=== PATIENT | female | born 1935 | race Caucasian/White ===

== ENCOUNTER 2020-05-04 23:12 | Inpatient (IN) | payer MEDICARE, OTHER ==
[~2020-05-04] VITALS: Ht 167.6 cm; Wt 66.7 kg
--- NOTE | 2020-05-04 23:14 | NUR ---
2300 PT VICENTE SIFUENTES WENT IN RM 7.
[2020-05-04 23:19] VITALS: BP 142/69
--- NOTE | 2020-05-04 23:30 | NUR ---
SEE COMPLETE ASSESSMENT NKDA HX:EXTENSIVE-- DM; HYPOTHYROIDISM; ALZHEIMER'S; SEE PAPER PAPERWORK STATUS--DNR (POLST ATTACHED TO PAPERWORK)
[2020-05-04] MEDS ORDERED: DEXAMETHASONE 4 MG/ML VIAL IVP ONE (23:35)
[2020-05-04] MEDS ORDERED: AZITHROMYCIN 500 MG in DEXTROSE 5% 250 ML IV ONE (23:35)
[2020-05-04] MEDS ORDERED: ALBUTEROL SULFATE/IPRATROPIU 3 ML SOL IH ONE (23:35)
[2020-05-05] MEDS ORDERED: cefTRIAXone 1,000 MG VIAL ONE (00:05)
[2020-05-05 00:11] LABS: BASOPHILS # (AUTO) 0.1 K/uL (0.00-0.22); BASOPHILS % (AUTO) 0.9 % (0.0-2.0); HEMOGLOBIN 12.8 g/dL (12.0-16.0); LYMPHOCYTES % (AUTO) 9.8 % (20.5-51.1); MEAN CORPUSCULAR HEMOGLOBIN 32 pg (27-31); MEAN CORPUSCULAR HGB CONC 33 g/dL (33-37); MEAN CORPUSCULAR VOLUME 97.7 fL (80-94); MONOCYTES # (AUTO) 0.5 K/uL (0.8-1.0); MONOCYTES % (AUTO) 4.3 % (1.7-9.3); PLATELET COUNT (AUTO) 252 K/uL (140-450); RED BLOOD CELL COUNT(AUTO) 3.99 MIL/uL (4.20-5.40); WHITE BLOOD COUNT (AUTO) 10.5 K/uL (4.8-10.8)
[2020-05-05 00:27] LABS: FIBRINOGEN 500 mg/dL (200-400)
[2020-05-05 00:42] LABS: C-REACTIVE PROTEIN QUANT 33.8 mg/dL (0.0-0.9)
[2020-05-05 00:44] LABS: ALBUMIN 2.4 g/dL (3.4-5.0); ANION GAP 14.2 (8-16); ASPARTATE AMINOTRANSFERASE 75 U/L (15-37); CHLORIDE 107 mmol/L (98-107); GLUCOSE 312 mg/dL (74-106); POTASSIUM 3.2 mmol/L (3.5-5.1); SODIUM SERUM 146 mmol/L (136-145); TOTAL BILIRUBIN 0.5 mg/dL (0.0-1.0)
[2020-05-05 00:48] LABS: D-DIMER 4190 ng/ml (0-400)
[2020-05-05] MEDS ORDERED: AZITHROMYCIN 500 MG INJ VIAL IV ONE (00:56)
[2020-05-05] MEDS ORDERED: NACL 0.9% 1,000 ML IV ONE ×2 (01:00)
[2020-05-05 01:27] LABS: UREA NITROGEN, BLOOD 95 mg/dL (7-18)
[2020-05-05] MEDS ORDERED: ASPIRIN 325 MG TAB PO ONE (01:30)
--- NOTE | 2020-05-05 01:31 | NUR ---
DR. HU AT BEDSIDE.
--- NOTE | 2020-05-05 01:33 | NUR ---
PATIENT RESTING IN BED WITH EYES CLOSED. VSS. WILL CONTINUE TO MONITOR.
--- NOTE | 2020-05-05 01:37 | NUR ---
PER DR. HU, PATIENT IS DNR; HOWEVER, SPOKE WITH PT.'S DAUGHTER AND WISHES FOR PATIENT TO BE TAKEN TO HOSPITAL FOR TREATMENT.
[2020-05-05] MEDS ORDERED: ENOXAPARIN 60 MG/0.6 ML SYR SUBQ ONE ×2 (02:30→03:50)
--- NOTE | 2020-05-05 03:24 | NUR ---
HHN NOT ADMINISTER DUE TO COVID PROTOCOL.
--- NOTE | 2020-05-05 03:40 | NUR ---
DR. HU AT BEDSIDE FOR RIGHT FEMORAL TLC.
--- NOTE | 2020-05-05 03:43 | NUR ---
CRITICAL LAB- CREATININE 2.0; BUN 95; GFR 25; DR. HU MADE AWARE; NO CT. ANGIO AT THIS TIME.
[2020-05-05] MEDS ORDERED: POTASSIUM CHL 20 MEQ/NACL 0.9% 1,000 ML IV SCH (03:45)
--- NOTE | 2020-05-05 03:46 | NUR ---
TROPONIN 0.163; DR. HU MADE AWARE.
[2020-05-05] MEDS ORDERED: ASPIRIN 325 MG TAB ONE (03:50)
[2020-05-05] MEDS ORDERED: ENOXAPARIN 60 MG/0.6 ML SYR SUBQ SCH (03:55)
--- NOTE | 2020-05-05 04:22 | NUR ---
PATIENT RESTING WITH EYES CLOSED. HOB <45; WILL CONTINUE TO MONITOR.
[2020-05-05] MEDS ORDERED: MEGE40SU4 PO (05:16)
[2020-05-05] MEDS ORDERED: SYN.05 PO (05:16)
[2020-05-05] MEDS ORDERED: DOCU-299 PO (05:16)
[2020-05-05] MEDS ORDERED: ATOR20TA PO (05:16)
[2020-05-05] MEDS ORDERED: ASPI-1884 PO (05:16)
[2020-05-05] MEDS ORDERED: MAGN400S60 PO (05:16)
[2020-05-05] MEDS ORDERED: ZINC220C28 PO (05:16)
[2020-05-05] MEDS ORDERED: BISA-213 RC (05:16)
[2020-05-05] MEDS ORDERED: AMLO10TA PO (05:16)
[2020-05-05] MEDS ORDERED: NITR0.4T2 SL (05:16)
[2020-05-05] MEDS ORDERED: ORE25 PO (05:16)
[2020-05-05] MEDS ORDERED: ACET-1182 PO (05:17)
[2020-05-05] MEDS ORDERED: INSU100V6 SQ (05:18)
[2020-05-05] MEDS ORDERED: INSU100S22 SUBQ (05:18)
[2020-05-05] MEDS ORDERED: GLUC1VIA (05:20)
--- NOTE | 2020-05-05 05:30 | NUR ---
PATIENT RESTING; NO DISTRESS-WILL CONTINUE TO MONITOR.
--- NOTE | 2020-05-05 06:36 | NUR ---
PATIENT SITTING QUIETLY IN BED. VSS.
--- NOTE | 2020-05-05 06:41 | NUR ---
Mireille blake in [facility] - 05/05/20 at 0642 by YOSI PATIENT IS COVID +
--- NOTE | 2020-05-05 07:08 | NUR ---
Pt report given to MARQUISE CHAVEZ. Transfer of care at this time.
--- NOTE | 2020-05-05 10:22 | NUR ---
Patient will be admitted to care of DR HORN. Admited to . Will go to room. Belongings list completed. Report to . ALL QUESTIONS ANSWERED, ENDORSED PT IN STABLE CONDITION, VSS, IN NAD. PTS FAMILY IN AGREEMENT WITH ADMISSION.
--- NOTE | 2020-05-05 10:30 | NUR ---
RECEIVED PATIENT FROM ER NURSE. PATIENT IS AOX1. RESPIRATIONS EVEN AND UNLABORED. ON 6 L NRB SATING AT 96%. NO DISTRESS NOTED. S1 AND S2 HEARD. SKIN IS DRY AND WARM. HAS PRESSURE WOUND ON SACRAL AREA. HAS RIGHT FEMORAL TRIPLE LUMEN AND RFA 22 G. INTACT AND PATENT. BOWEL SOUNDS ACTIVE IN ALL FOUR QUADRANTS. PT IS INCONTINENT. PLAN OF CARE WAS DISCUSSED. SAFETY PRECAUTIONS IN PLACE. CALL LIGHT WITHIN REACH. WILL CONTINUE TO MONITOR
[2020-05-05] MEDS ORDERED: HYDROcodone/APAP 7.5/325 MG 1 TAB PO PRN (11:45)
[2020-05-05] MEDS ORDERED: DOCUSATE SODIUM 100 MG GELCAP PO PRN (11:45)
[2020-05-05] MEDS ORDERED: ONDANSETRON 4 MG/2 ML VIAL IM/IVP PRN (11:45)
[2020-05-05] MEDS ORDERED: ACETAMINOPHEN 325 MG TAB PO PRN (11:45)
[2020-05-05] MEDS ORDERED: ZOLPIDEM 5 MG TAB PO PRN (11:45)
[2020-05-05] MEDS ORDERED: POTASSIUM CHLORIDE 40 MEQ, LIDOCAINE MPF 1% 25 MG in NACL 0.9% 250 ML IV PRN (11:45)
[2020-05-05] MEDS ORDERED: guaiFENesin DM 200/20 MG-10 ML 10 ML UDC PO PRN (11:45)
[2020-05-05] MEDS ORDERED: ALBUTEROL HFA MDI 90 MCG/ACTUATION 8 GM INH PRN (11:55)
[2020-05-05] MEDS ORDERED: DEXTROSE 50% 50 ML SYR IVP PRN (12:00)
[2020-05-05] MEDS: NACL 0.9% 1,000 ML IV SCH (12:07)
[2020-05-05] MEDS: amLODIPine 5 MG TAB PO SCH (12:09)
[2020-05-05] MEDS ORDERED: remdesivir CLINICAL MONITORING 1 EA MISC MC PRN (12:10)
[2020-05-05] MEDS ORDERED: REMDESIVIR (EUA) 200 MG in NACL 0.9% 100 ML IV ONE (12:10)
--- NOTE | 2020-05-05 12:15 | NUR ---
ALL SCHEDULED MEDS GIVEN. PT IS STABLE. NO DISTRESS NOTED. WILL CONTINUE TO MONITOR.
[2020-05-05] MEDS ORDERED: REMDESIVIR (EUA) 200 MG in NACL 0.9% 100 ML IV SCH (13:00)
--- NOTE | 2020-05-05 13:00 | NUR ---
WOUND CARE EVAL PLACED. PICTURES TAKEN AND PLACED IN PATIENTS FOLDER
--- NOTE | 2020-05-05 13:25 | NUR ---
SOCIAL WORK NOTE: Patient's Orientation Unable To Assess Information Provided By FELIX - ED Comments SW WAS UNABLE TO MEET PATIENT AT BEDSIDE. LUIS FELIPE COMPLETED ASSESSMENT WITH FELIX FROM [facility]. Chicken Cutter, Realtionship and Phone Number LAVON DAUGHTER [phone] COURTNEY LAL [phone] [facility] Power of Chlorinator No Does Patient Have a POLST No Identifying Problems No Social Work Triggers Is A Social Work Consult Needed No Mandate Report Filed No Explanation Of Identifying Problems PATIENT IS AN 84-YEAR-OLD FEMALE ADMITTED FOR ELEVATED TROPONIN. PATIENT HAS PMHX OF CVA, HYPERTENSION, AND DEMENTIA. [facility] - [phone] Pre-Admission Level Of Functioning Status Assist With ADL Prior Resources/Services Used In Last 12 Months SNF Rehab/Skilled Prior Resources/Service Comments PATIENT IS SKILLED AND IS NOT ON A BED HOLD. Prior DME No Prior DME Used Dialysis Comments N/A Patient Had Caregiver No Home Support No Caregiver Issues Financial Issues No Known Financial Issue Referral To The Financial Counselor Needed No Factors/Needs No D/C Needs Identified Discharge Plan Comments TENTATIVE DISCHARGE PLAN IS FOR PATIENT TO RETURN TO [facility]. DC Plan Status Initiated
[2020-05-05 13:26] LABS: CHOL/HDL RATIO 5.6 (1-4.5); FREE T4 (FREE THYROXINE) 1.01 ng/dL (0.76-1.46); MAGNESIUM 2.6 mg/dL (1.8-2.4); PHOSPHORUS 2.9 mg/dL (2.5-4.9); THYROID STIMULATING HORMONE 1.18 uIU/mL (0.34-3.74)
--- NOTE | 2020-05-05 15:33 | NUR ---
DC PLANNIN YRS OLD FEMAL PATIENT WAS ADMITTED FROM [facility] WITH A DX OF ELVATED TROPONIN, ACUTE RESP FAILURE, COVID TEST POSITIVE ON 15LNRB SATING 98 %. STARTED COVID TREATMENT ROCPEHIN AND AZITHROMYCIN IV ABX ,CONTINUED HOME MEDS. CONSULTED WITH CARDIO AND PULMO. DC PLAN TOGO BACK TO [facility] WHEN STABLE CM TO FOLLOW. Addendum: 05/08/20 at 1125 by Donna Suazo CM DC HEALTH NURSE: DISCUSSED WITH CM THAT PATIENT MAY BE DC BACK TO [facility] TODAY. FAXED PATIENTS CLINICALS TO [facility]. Addendum: 05/08/20 at 1255 by Donna Suazo CM DC HEALTH NURSE: SPOKE TO FELIX AT [facility], WAITING ON BED NUMBER. Addendum: 05/08/20 at 1306 by Donna Suazo CM DC HEALTH NURSE: SPOKE TO PATIENTS LAVON HAMILTON [phone] TO DISCUSS DISCHARGE BACK TO [facility] AND DISCUSSED RIGHTS OF MEDICARE. Addendum: 05/08/20 at 1404 by Donna Suazo CM [facility]: [facility] [place] PATIENT CAN GO TO ROOM 43-C. [facility] WILL ACCEPT TRANSPORTATION BILL. SET UP TRANSPORTATION WITH [facility] [phone] OR [phone] Addendum: 05/08/20 at 1430 by Donna Suazo CM [facility]: TRANSPORTATION IS SET UP FOR 7:00 PM WITH [facility] MARQUISE QUINTANILLA. Addendum: 05/08/20 at 1431 by Donna Suazo CM [facility]: [facility] [address] [id number] [address]
[2020-05-05] MEDS: BLOOD GLUCOSE MONITORING 1 DEV DEV FS SCH ×2 (17:00→21:00)
[2020-05-05] MEDS: ATORVASTATIN 20 MG TAB PO SCH (17:36)
--- NOTE | 2020-05-05 17:36 | NUR ---
ALL SCHEDULED MEDS GIVEN. PT IS STABLE NO DISTRESS NOTED. WILL CONTINUE TO MONITOR.
[2020-05-05] MEDS: INSULIN LISPRO SLIDING SCALE 100 UNITS/ML VIAL SUBQ PRN ×2 (17:53→22:06)
--- NOTE | 2020-05-05 19:45 | NUR ---
ENDORSED TO CASTING MACHINE CONTROL BOARD OPERATOR NURSE FOR CONTINUITY OF CARE. PT IS STABLE
--- NOTE | 2020-05-05 19:50 | NUR ---
RECEIVED ENDORSEMENT FROM AM SHIFT RN. PT IS AOX1, ON NRB, O2 SAT WNL, NO SOB, NO DISTRESS, SAFETY MEASURES IN PLACE PLAN OF CARE DISCUSSED, CALL LIGHT WITHIN REACH.
[2020-05-05 20:00] VITALS: BP 128/73
[2020-05-05] MEDS: INSULIN LANTUS 100 UNITS/ML 10 ML VIAL SUBQ SCH (21:00)
--- NOTE | 2020-05-05 22:06 | NUR ---
BLOOD SUGAR 164. 2 UNITS HUMALOG SQ GIVEN PER SLIDING SCALE, LANTUS 30 U NOT GIVEN, PT HAS POOR APPETITE, CALL LIGHT WITHIN REACH.
[2020-05-06] VITALS: BP 147/91
[2020-05-06] MEDS ORDERED: ENOXAPARIN 80 MG/0.8 ML SYR SUBQ SCH (03:00)
--- NOTE | 2020-05-06 03:32 | NUR ---
PERINEAL CARE RENDERED, DUE MEDS GIVEN, TOLERATED WELL, KEPT CLEAN, DRY AND COMFORTABLE, CALL LIGHT WITHIN REACH.
[2020-05-06 04:00] VITALS: BP 157/60
[2020-05-06] MEDS: NACL 0.9% 1,000 ML IV SCH (04:25)
[2020-05-06] MEDS: BLOOD GLUCOSE MONITORING 1 DEV DEV FS SCH ×4 (06:11→21:51)
--- NOTE | 2020-05-06 07:53 | NUR ---
PT IS STABLE, NO SOB, NO DISTRESS, BEDSIDE ENDORSEMENT GIVEN TO AM SHIFT RN FOR CONTINUITY OF CARE.
--- NOTE | 2020-05-06 07:58 | NUR ---
RECEIVED REPORT FROM NIGHTSHIFT NURSE. PT RESTING IN BED. ABLE TO MAKE SOME NEEDS KNOWN. RESPIRATIONS EVEN AND UNLABORED WITH NO SOB OR RESPIRATORY DISTRESS. SKIN WARM AND DRY TO TOUCH. IV SITE IN RFA 22G IS CLEAN, DRY, AND INTACT. SAFETY MEASURES IN PLACE. WILL CONTINUE TO MONITOR
[2020-05-06 08:00] VITALS: BP 155/76
[2020-05-06 08:07] LABS: T3 UPTAKE 33 % (24-39)
[2020-05-06 08:29] LABS: BASOPHILS % (AUTO) 0.2 % (0.0-2.0); HEMATOCRIT 37.9 % (36-48); HEMOGLOBIN 12.2 g/dL (12.0-16.0); LYMPHOCYTES # (AUTO) 1.1 K/uL (2.5-16.5); MEAN CORPUSCULAR HEMOGLOBIN 32 pg (27-31); MEAN CORPUSCULAR HGB CONC 32 g/dL (33-37); MEAN CORPUSCULAR VOLUME 98.3 fL (80-94); MONOCYTES # (AUTO) 0.5 K/uL (0.8-1.0); MONOCYTES % (AUTO) 3.7 % (1.7-9.3); NEUTROPHILS # (AUTO) 10.6 K/uL (1.8-7.7); NEUTROPHILS % (AUTO) 87.1 % (42.2-75.2); PLATELET COUNT (AUTO) 255 K/uL (140-450); RED BLOOD CELL COUNT(AUTO) 3.86 MIL/uL (4.20-5.40); RED CELL DISTRIBUTION WIDTH 15.2 % (11.6-13.7); WHITE BLOOD COUNT (AUTO) 12.2 K/uL (4.8-10.8)
[2020-05-06] MEDS: ASCORBIC ACID 500 MG TAB PO SCH (08:42)
[2020-05-06] MEDS: ZINC SULF 220 MG CAP PO SCH (08:42)
[2020-05-06] MEDS: ASPIRIN 81 MG TAB.CHEW PO SCH (08:43)
[2020-05-06] MEDS: PANTOPRAZOLE 40 MG TABEC PO SCH (08:43)
[2020-05-06] MEDS: AZITHROMYCIN 250 MG TAB PO SCH (08:43)
[2020-05-06] MEDS: LEVOTHYROXINE 0.05 MG TAB PO SCH (08:43)
[2020-05-06] MEDS: hydroCHLOROthiazide 25 MG TAB PO SCH (08:44)
[2020-05-06] MEDS: amLODIPine 5 MG TAB PO SCH (08:44)
[2020-05-06 08:52] LABS: ANION GAP 15.8 (8-16); CARBON DIOXIDE 25.6 mmol/L (21-32); CHLORIDE 119 mmol/L (98-107); CREATININE 1.4 mg/dL (0.6-1.3); GLUCOSE 122 mg/dL (74-106); POTASSIUM 3.4 mmol/L (3.5-5.1); UREA NITROGEN, BLOOD 59 mg/dL (7-18)
[2020-05-06] MEDS: COMMUNICATION ORDER MC SCH (09:00)
--- NOTE | 2020-05-06 09:07 | NUR ---
ADMINISTERED SCHED MED PRESCRIBED PER MD ORDER. MEDICATION EDUCATION PERFORMED. PT CONFUSED AND UNABLE TO VERBALIZE UNDERSTANDING. SAFETY MEASURES IN PLACE. WILL CONTINUE TO MONITOR
[2020-05-06 09:08] LABS: LACTATE DEHYDROGENASE 453 IU/L (119-226)
[2020-05-06 09:28] LABS: BILIRUBIN,DIRECT 0.1 mg/dL (0.0-0.3); TOTAL BILIRUBIN 0.3 mg/dL (0.0-1.0)
[2020-05-06 10:20] LABS: SODIUM SERUM 157 mmol/L (136-145)
--- NOTE | 2020-05-06 11:30 | NUR ---
PT BLOOD SUGAR IS 149. NO INSULIN NEEDED AT THIS TIME. SAFETY MEASURES IN PLACE. WILL CONTINUE TO MONITOR
[2020-05-06 12:00] VITALS: BP 139/75
--- NOTE | 2020-05-06 13:15 | NUR ---
PT RESTING IN BED. FLACC 0. RESPIRATIONS EVEN AND UNLABORED WITH NO SOB OR RESPIRATORY DISTRESS. SKIN WARM AND DRY TO TOUCH. SAFETY MEASURES IN PLACE. WILL CONTINUE TO MONITOR
[2020-05-06] MEDS ORDERED: remdesivir CLINICAL MONITORING 1 EA MISC MC PRN (13:25)
--- NOTE | 2020-05-06 14:04 | NUR ---
PATIENT HAS BEEN SCREENED AND CATEGORIZED MODERATE NUTRITION RISK. PATIENT WILL BE SEEN WITHIN 3-5 DAYS OF ADMISSION. 05/08/20-05/10/20 JOELLE MAO MS, RDN
--- NOTE | 2020-05-06 15:30 | NUR ---
PT RESTING IN BED. FLACC 0. RESPIRATIONS EVEN AND UNLABORED WITH NO SOB OR RESPIRATORY DISTRESS. SKIN WARM AND DRY TO TOUCH. SAFETY MEASURES IN PLACE. WILL CONTINUE TO MONITO
[2020-05-06 16:00] VITALS: BP 145/64
--- NOTE | 2020-05-06 16:30 | NUR ---
PT BLOOD SUGAR IS 187. PRN INSULIN TO BE ADMINISTERED PRESCRIBED PER MD ORDER WITH NEXT MEAL. SAFETY MEASURES IN PLACE WILL CONTINUE TO MONITOR
[2020-05-06] MEDS: NACL 0.45% 1,000 ML IV SCH (16:35)
[2020-05-06] MEDS ORDERED: REMDESIVIR (EUA) 200 MG in NACL 0.9% 100 ML IV SCH (17:00)
[2020-05-06] MEDS: ATORVASTATIN 20 MG TAB PO SCH (17:03)
[2020-05-06] MEDS: REMDESIVIR (EUA) 100 MG in NACL 0.9% 100 ML IV SCH (17:14)
--- NOTE | 2020-05-06 17:14 | NUR ---
ADMINISTERED SCHED MED PRESCRIBED PER MD ORDER. MEDICATION EDUCATION PERFORMED. PT CONFUSED AND UNABLE TO VERBALIZE UNDERSTANDING. SAFETY MEASURES IN PLACE. WILL CONTINUE TO MONITOR
[2020-05-06] MEDS: INSULIN LISPRO SLIDING SCALE 100 UNITS/ML VIAL SUBQ PRN ×2 (17:58→22:01)
--- NOTE | 2020-05-06 18:02 | NUR ---
ADMINISTERED SCHED MED PRESCRIBED PER MD ORDER. MEDICATION EDUCATION PERFORMED. PT CONFUSED AND UNABLE TO VERBALIZE UNDERSTANDING. SAFETY MEASURES IN PLACE. WILL CONTINUE TO MONITOR
--- NOTE | 2020-05-06 19:30 | NUR ---
ENDORSED TO NIGHTSHIFT FOR CONTINUITY OF CARE. PT IS STABLE
--- NOTE | 2020-05-06 19:31 | NUR ---
RECEIVED ENDORSEMENT FROM AM SHIFT RN. PT IS AOX1, ON NRB, O2 SAT WNL, NO SOB, NO DISTRESS, SAFETY MEASURES IN PLACE PLAN OF CARE DISCUSSED, CALL LIGHT WITHIN REACH. ISO PRECAUTION OBSERVED AT ALL TIMES.
[2020-05-06 20:00] VITALS: BP_SYST 131; BP_SYST 145; BP_DIAS 52; BP_DIAS 64
--- NOTE | 2020-05-06 20:00 | NUR ---
PT IS IN STABLE CONDITION, NO SOB, NO DISTRESS, ON NRB, O2 SAT 96%, ENDORSED TO MARQUISE CRUZ FOR CONTINUITY OF CARE.
[2020-05-06] MEDS: ENOXAPARIN 80 MG/0.8 ML SYR SUBQ SCH (21:00)
[2020-05-06] MEDS: INSULIN LANTUS 100 UNITS/ML 10 ML VIAL SUBQ SCH (22:00)
[2020-05-07] VITALS: BP 150/69
[2020-05-07] MEDS: NACL 0.45% 1,000 ML IV SCH ×3 (02:35→22:53)
[2020-05-07 04:00] VITALS: BP 154/59
--- NOTE | 2020-05-07 07:15 | NUR ---
RECEIVED REPORT FROM NIGHTSHIFT NURSE. PT RESTING IN BED. ABLE TO FOLLOW SOME COMMANDS. RESPIRATIONS EVEN AND UNLABORED WITH NO SOB OR RESPIRATORY DISTRESS. IV SITE IN R HAND 22G AND R FEMORAL TRIPLE LUMEN IS CLEAN, DRY AND INTACT. SKIN WARM AND DRY TO TOUCH. SAFETY MEASURES IN PLACE. WILL CONTINUE TO MONITOR
[2020-05-07] MEDS: BLOOD GLUCOSE MONITORING 1 DEV DEV FS SCH ×4 (07:53→21:54)
[2020-05-07 08:00] VITALS: BP 156/84
[2020-05-07 08:18] LABS: BASOPHILS % (AUTO) 0.3 % (0.0-2.0); HEMATOCRIT 36.6 % (36-48); LYMPHOCYTES # (AUTO) 1.1 K/uL (2.5-16.5); LYMPHOCYTES % (AUTO) 11.8 % (20.5-51.1); MEAN CORPUSCULAR HEMOGLOBIN 32 pg (27-31); MEAN CORPUSCULAR HGB CONC 33 g/dL (33-37); MEAN CORPUSCULAR VOLUME 97.5 fL (80-94); MONOCYTES # (AUTO) 0.5 K/uL (0.8-1.0); NEUTROPHILS # (AUTO) 8.1 K/uL (1.8-7.7); NEUTROPHILS % (AUTO) 82.9 % (42.2-75.2); PLATELET COUNT (AUTO) 259 K/uL (140-450); RED BLOOD CELL COUNT(AUTO) 3.76 MIL/uL (4.20-5.40); RED CELL DISTRIBUTION WIDTH 15.3 % (11.6-13.7); WHITE BLOOD COUNT (AUTO) 9.8 K/uL (4.8-10.8)
[2020-05-07] MEDS: ENOXAPARIN 80 MG/0.8 ML SYR SUBQ SCH (08:23)
[2020-05-07] MEDS: ZINC SULF 220 MG CAP PO SCH (08:23)
[2020-05-07] MEDS: ASCORBIC ACID 500 MG TAB PO SCH (08:24)
[2020-05-07] MEDS: PANTOPRAZOLE 40 MG TABEC PO SCH (08:24)
[2020-05-07] MEDS: AZITHROMYCIN 250 MG TAB PO SCH (08:25)
[2020-05-07] MEDS: ASPIRIN 81 MG TAB.CHEW PO SCH (08:25)
[2020-05-07] MEDS: amLODIPine 5 MG TAB PO SCH (08:25)
[2020-05-07] MEDS: COMMUNICATION ORDER MC SCH (08:25)
[2020-05-07] MEDS: LEVOTHYROXINE 0.05 MG TAB PO SCH (08:26)
[2020-05-07] MEDS: hydroCHLOROthiazide 25 MG TAB PO SCH (08:26)
--- NOTE | 2020-05-07 09:15 | NUR ---
ADMINISTERED SCHED MED PRESCRIBED PER MD ORDER. PT TOLERATED WELL. MEDICATION EDUCATION. PT CONFUSED AND UNABLE TO VERBALIZE UNDERSTANDING. SAFETY MEASURES IN PLACE. WILL CONTINUE TO MONITOR
[2020-05-07 09:16] LABS: ANION GAP 20.1 (8-16); CARBON DIOXIDE 23.1 mmol/L (21-32); CHLORIDE 118 mmol/L (98-107); CREATININE 1.5 mg/dL (0.6-1.3); GLUCOSE 192 mg/dL (74-106); POTASSIUM 3.2 mmol/L (3.5-5.1)
[2020-05-07 09:21] LABS: SODIUM SERUM 158 mmol/L (136-145); UREA NITROGEN, BLOOD 63 mg/dL (7-18)
[2020-05-07 09:26] LABS: BILIRUBIN,DIRECT 0.2 mg/dL (0.0-0.3); TOTAL BILIRUBIN 0.5 mg/dL (0.0-1.0)
--- NOTE | 2020-05-07 11:30 | NUR ---
PT BLOOD SUGAR IS 203. PRN INSULIN TO BE ADMINISTERED WITH NEXT MEAL. SAFETY MEASURES IN PLACE. WILL CONTINUE TO MONITOR
[2020-05-07 12:00] VITALS: BP 128/77
[2020-05-07] MEDS: INSULIN LISPRO SLIDING SCALE 100 UNITS/ML VIAL SUBQ PRN ×3 (12:10→22:07)
--- NOTE | 2020-05-07 13:37 | NUR ---
PT KEEPS TAKING OFF MASK. O2 DROPS TO 86% ON ROOM AIR. PT IS CONFUSED. EDUCATED PT ON OXYGEN THERAPY. PT UNABLE TO VERBALIZE UNDERSTANDING. PT MUMBLING. PLACED NC 4L ON PT. PT SATURATING AT 94%. SAFETY MEASURES IN PLACE. WILL CONTINUE TO MONITOR
--- NOTE | 2020-05-07 15:15 | NUR ---
PT TOLERATING NC AT 4L WELL. O2 AT 94%. SAFETY MEASURES IN PLACE. WILL CONTINUE TO MONITOR
[2020-05-07 16:00] VITALS: BP 135/50
--- NOTE | 2020-05-07 16:30 | NUR ---
PT BLOOD SUGAR IS 191. PRN INSULIN TO BE ADMINISTERED WITH NEXT MEAL. SAFETY MEASURES IN PLACE. WILL CONTINUE TO MONITOR
[2020-05-07] MEDS ORDERED: REMDESIVIR (EUA) 100 MG in NACL 0.9% 100 ML IV SCH (17:00)
[2020-05-07] MEDS: ATORVASTATIN 20 MG TAB PO SCH (17:25)
[2020-05-07] MEDS: REMDESIVIR (EUA) 100 MG in NACL 0.9% 100 ML IV SCH (17:25)
[2020-05-07 19:27] LABS: FERRITIN 753 ng/mL (15-150)
--- NOTE | 2020-05-07 19:37 | NUR ---
ENDORSED TO NIGHTSHIFT FOR CONTINUITY OF CARE. PT IS STABLE
[2020-05-07 20:00] VITALS: BP 147/72
[2020-05-07] MEDS: INSULIN LANTUS 100 UNITS/ML 10 ML VIAL SUBQ SCH (21:00)
[2020-05-08] VITALS: BP 123/28
[2020-05-08 04:00] VITALS: BP 87/52
[2020-05-08 06:10] LABS: BASOPHILS % (AUTO) 0.2 % (0.0-2.0); HEMATOCRIT 36.2 % (36-48); HEMOGLOBIN 11.9 g/dL (12.0-16.0); LYMPHOCYTES # (AUTO) 0.9 K/uL (2.5-16.5); LYMPHOCYTES % (AUTO) 9.2 % (20.5-51.1); MEAN CORPUSCULAR HEMOGLOBIN 32 pg (27-31); MEAN CORPUSCULAR HGB CONC 33 g/dL (33-37); MEAN CORPUSCULAR VOLUME 96.9 fL (80-94); MONOCYTES # (AUTO) 0.7 K/uL (0.8-1.0); MONOCYTES % (AUTO) 6.7 % (1.7-9.3); NEUTROPHILS # (AUTO) 8.2 K/uL (1.8-7.7); NEUTROPHILS % (AUTO) 83.9 % (42.2-75.2); PLATELET COUNT (AUTO) 311 K/uL (140-450); RED BLOOD CELL COUNT(AUTO) 3.74 MIL/uL (4.20-5.40); WHITE BLOOD COUNT (AUTO) 9.8 K/uL (4.8-10.8)
[2020-05-08 06:48] LABS: ANION GAP 20.7 (8-16); CHLORIDE 115 mmol/L (98-107); CREATININE 1.3 mg/dL (0.6-1.3); GLUCOSE 188 mg/dL (74-106); SODIUM SERUM 154 mmol/L (136-145); UREA NITROGEN, BLOOD 55 mg/dL (7-18)
[2020-05-08 07:02] LABS: BILIRUBIN,DIRECT 0.1 mg/dL (0.0-0.3); TOTAL BILIRUBIN 0.6 mg/dL (0.0-1.0)
[2020-05-08 07:30] LABS: POTASSIUM 2.7 mmol/L (3.5-5.1)
[2020-05-08 08:00] VITALS: BP 105/79
[2020-05-08] MEDS: NACL 0.45% 1,000 ML IV SCH ×2 (08:20→18:20)
[2020-05-08] MEDS: COMMUNICATION ORDER MC SCH (09:00)
[2020-05-08] MEDS: ENOXAPARIN 80 MG/0.8 ML SYR SUBQ SCH (09:00)
--- NOTE | 2020-05-08 09:21 | NUR ---
PATIENT HAS BEEN RE-SCREENED AND RE-CATEGORIZED HIGH NUTRITIONAL RISK. PT WILL BE SEEN WITHIN 2-3 DAYS FROM ADMISSION 05/08/[address]
[2020-05-08] MEDS: PANTOPRAZOLE 40 MG TABEC PO SCH (10:44)
[2020-05-08] MEDS: ASPIRIN 81 MG TAB.CHEW PO SCH (10:45)
[2020-05-08] MEDS: AZITHROMYCIN 250 MG TAB PO SCH (10:45)
[2020-05-08] MEDS: ASCORBIC ACID 500 MG TAB PO SCH (10:45)
[2020-05-08] MEDS: LEVOTHYROXINE 0.05 MG TAB PO SCH (10:46)
[2020-05-08] MEDS: ZINC SULF 220 MG CAP PO SCH (10:52)
[2020-05-08] MEDS: amLODIPine 5 MG TAB PO SCH (10:59)
[2020-05-08] MEDS: hydroCHLOROthiazide 25 MG TAB PO SCH (11:00)
[2020-05-08] MEDS: BLOOD GLUCOSE MONITORING 1 DEV DEV FS SCH ×2 (11:30→16:30)
[2020-05-08] MEDS: INSULIN LISPRO SLIDING SCALE 100 UNITS/ML VIAL SUBQ PRN ×2 (13:02→17:43)
--- NOTE | 2020-05-08 14:45 | NUR ---
WOUND CARE EVALUATION NOTE: REASON FOR EVALUATION: LOW MARIO SCALE AND SACRALCOCCYX WOUND SKIN ASSESSMENT DONE WITH THIS 84 Y/O PT ADMITTED WITH INITIAL DX SOB. PT. ADMITTED FROM SNF WITH PRESSURE INJURY TO SACRALCOCCYX. PAST MEDICAL HX INCLUDES STROKE, HYPERTENSION, DIABETES, ADVANCED DEMENTIA AND HYPOTHYROIDISM. ALL ABOVE INFORMATION OBTAINED FROM ADMISSION H&P. PT IS ALERT, CONFUSE, FOLLOW SIMPLE DIRECTIONS, SKIN IS WARM AND DRY, BLE NO HAIR GROWTH, BLE TRACE EDEMA. DORSAL PEDAL PULSES PRESENT AND NORMAL. CAPILLARY REFILLED < 2 SEC. X 10 TOES. PLAN OF CARE DISCUSSED WITH PRIMARY RN. INTEGUMENTARY: -INCONTINENT ASSOCIATE DERMATITIS (IAD) TO: B/L GROINS, MEDIAL THIGHS AND PERINEUM, SKIN MOIST, RED AND INTACT -PRESSURE ULCER INJURY STAGE 4, SACROCOCCYX 1X1X0.5CM, WOUND BED PINK, MOIST, NO ODOR, BRIDGET-WOUND SKIN PURPLE OIST AND INDICATED FURTHER DAMAGE RECOMMENDATIONS: -APPLY HYDRAGUARD TO R/L GROINS, MEDIAL THIGHS AND PERINEUM BID AND PRN IF SOILING -CLEANSE SACRALCOCCYX WITH NS, PAT DRY, APPLY HYDROGEL TO WOUND BED, AND HYDRAGARD TO PERIWOUND SKIN, COVER WITH COMPOSITE DRESSING QD AND PRN IF SOILING -APPLY HEEL PROTECTORS TO BOTH HEELS AT ALL TIMES -OFFLOAD BILATERAL HEELS BY PLACING PILLOWS UNDER CALVES UNLESS OTHERWISE CONTRAINDICATED -PRESSURE REDISTRIBUTION SURFACE THERAPY -TURN AND REPOSITION Q2H, OFFLOAD SACRALCOCCYX AND BUTTOCKS BY TURNING RIGHT AND LEFT -CONTINUE TO FOLLOW RD RECOMMENDATIONS ALL ABOVE RECOMMENDATIONS DISCUSSED WITH PRIMARY RN. PLEASE CONTACT WOUND CARE NURSE FOR ANY QUESTION AND CHANGE OF WOUND CONDITION
[2020-05-08] MEDS ORDERED: VITC500 PO (15:43)
[2020-05-08] MEDS ORDERED: ZINC220C28 PO (15:43)
[2020-05-08] MEDS ORDERED: DEXA6TAB1 PO (15:43)
[2020-05-08] MEDS ORDERED: APIX2.5 PO (15:43)
--- NOTE | 2020-05-08 16:17 | NUR ---
05/08/20 RD INITIAL ASSESSMENT COMPLETED PLEASE REFER TO NUTRITION ASSESSMENT UNDER CARE ACTIVITY FOR ESTIMATED NUTRITIONAL NEEDS. 1. RECOMMEND CCHO CARDIAC GROUND DIET TOLERATED 2. RECOMMEND GLUCERNA BID 3. ASSIST WITH MEALS 4. CONTINUE VITAMIN C AND ZINC SUPPLEMENTATION FOR WOUND HEALING. 5. RD TO FOLLOW-UP 2-3 DAYS, HIGH RISK BRYANT THOMAS RD
[2020-05-08 16:19] LABS: ANION GAP 15.6 (8-16); CARBON DIOXIDE 24.2 mmol/L (21-32); CHLORIDE 113 mmol/L (98-107); CREATININE 1.6 mg/dL (0.6-1.3); GLUCOSE 289 mg/dL (74-106); SODIUM SERUM 150 mmol/L (136-145)
[2020-05-08 16:29] LABS: POTASSIUM 2.8 mmol/L (3.5-5.1); UREA NITROGEN, BLOOD 63 mg/dL (7-18)
[2020-05-08] MEDS: ATORVASTATIN 20 MG TAB PO SCH (17:00)
[2020-05-08] MEDS: REMDESIVIR (EUA) 100 MG in NACL 0.9% 100 ML IV SCH (17:00)
[2020-05-08] MEDS ORDERED: POTASSIUM CHLORIDE 10 MEQ TABER PO ONE (18:15)
[2020-05-08] MEDS ORDERED: POTASSIUM CHLORIDE 20% 40 MEQ/15 ML UDC GT SCH (18:30)
[2020-05-09] MEDS ORDERED: HYDRAGUARD CREAM TP SCH (01:00)
[2020-05-09] MEDS ORDERED: POTASSIUM CHLORIDE 20% 40 MEQ/15 ML UDC GT SCH (09:00)
[2020-05-09] MEDS ORDERED: SKINTEGRITY HYDROGEL TP SCH (13:00)
[2020-05-10 06:21] LABS: LD2 FRACTION 26 % (25-40); LD3 FRACTION 23 % (17-27)
[2020-05-10 11:11] LABS: LD1 FRACTION 11 % (17-32); LD4 FRACTION 15 % (5-13); LD5 FRACTION 25 % (4-20)
== END 2020-05-08 19:00 | DRG 177 ==
LOC: MED 23:12 → MTU 05-05 02:35
PROVIDERS: ADMIT Family Medicine; ATTEND Family Medicine
PROC: XW033E5 Introduction of Remdesivir Anti-infective into Peripheral Vein, Percutaneous Approach, New Technology Group 5 (ICD-10-PCS; principal; 2020-05-05)
PROC: 06HY33Z Insertion of Infusion Device into Lower Vein, Percutaneous Approach (ICD-10-PCS; 2020-05-05)
PROC: B54BZZA Ultrasonography of Right Lower Extremity Veins, Guidance (ICD-10-PCS; 2020-05-05)
DX: U07.1 COVID-19 (principal); E43 Unspecified severe protein-calorie malnutrition; I21.A1 Myocardial infarction type 2; J12.82 Pneumonia due to coronavirus disease 2019; N17.0 Acute kidney failure with tubular necrosis; J96.01 Acute respiratory failure with hypoxia; E87.0 Hyperosmolality and hypernatremia; E87.2 Acidosis; D68.59 Other primary thrombophilia; E03.9 Hypothyroidism, unspecified; E11.9 Type 2 diabetes mellitus without complications; E78.5 Hyperlipidemia, unspecified; E83.41 Hypermagnesemia; F01.50 Vascular dementia, unspecified severity, without behavioral disturbance, psychotic disturbance, mood disturbance, and anxiety; E87.6 Hypokalemia; I10 Essential (primary) hypertension; Z86.73 Personal history of transient ischemic attack (TIA), and cerebral infarction without residual deficits; Z79.899 Other long term (current) drug therapy; Z79.84 Long term (current) use of oral hypoglycemic drugs; Z68.23 Body mass index [BMI] 23.0-23.9, adult
CPT/HCPCS: 36415; 36430; 36600; 71045; 76770; 80048; 80053; 80076; 82150; 82728; 82803; 82948; 83036; 83605; 83615; 83625; 83690; 83735; 83880; 84100; 84436; 84439; 84443; 84479; 84484; 85025; 85379; 85384; 85610; 85651; 85730; 86140; 86900; 86901; 87040; 87081; 87804; 93005; 96365; 96375; 97110; 97161-GP; 99285; A6248; J0456; J0696; J1100; J1650; J1815; J7030; J7060; U0003